=== PATIENT | female | born 1970 | race Native Hawaiian/Other Pacific Islander ===

== ENCOUNTER 2017-01-03 11:08 | Emergency (ER) | payer SELFPAY ==
[2017-01-03] MEDS ORDERED: FUROSEMIDE 40 MG/4 ML VIAL IVP STA (11:40)
[2017-01-03] MEDS ORDERED: IPRATROPIUM/ALBUTEROL 3 ML NEB INH STA (11:40)
[2017-01-03] MEDS ORDERED: IPRATROPIUM/ALBUTEROL 3 ML NEB INH ONE (11:59)
--- NOTE | 2017-01-03 12:01 | XRAY Preliminary Report ---
Exam: XR Chest 1 View IMPRESSION: 1. Some vascular redistribution is present. No alveolar edema. [facility] SITE ID: [id number]
[2017-01-03 12:10] LABS: BASOPHILS # (AUTO) 0.1 10^3/uL (0.0-0.1); BASOPHILS % (AUTO) 0.7 %; EOSINOPHILS # (AUTO) 0.3 10^3/uL (0.0-0.7); HCT - HEMATOCRIT 50.8 % (37.0-47.0); HGB - HEMOGLOBIN 16.5 g/dL (12.0-16.0); LYMPHOCYTES # (AUTO) 2.7 10^3/uL (1.5-3.5); LYMPHOCYTES % (AUTO) 27.9 %; MEAN CORPUSCULAR HGB CONC 32.5 g/dL (32.0-36.0); MEAN CORPUSCULAR VOLUME 92.2 fL (81.0-99.0); MEAN PLATELET VOLUME 7.5 fL (7.9-10.8); MONOCYTES # (AUTO) 0.5 10^3/uL (0.0-1.0); MONOCYTES % (AUTO) 5.1 %; NEUTROPHILS # (AUTO) 6.1 10^3/uL (1.5-6.6); NEUTROPHILS % (AUTO) 63.3 %; RED BLOOD COUNT 5.51 10^6/uL (4.20-5.40); RED CELL DISTRIBUTION WIDTH 16.6 % (12.0-15.0); UNCORRECTED WHITE BLOOD COUNT 9.6 x10^3/uL; WHITE BLOOD COUNT 9.6 x10^3/uL (4.8-10.8)
--- NOTE | 2017-01-03 12:17 | ED Physician Documentation ---
PD HPI DYSPNEA - Stated complaint Stated Complaint: SOA - Chief complaint Chief Complaint: Resp - History obtained from History obtained from: Patient, Family - History of Present Illness Timing - onset: How many days ago (About 10.) Timing - details: Waxing and waning Worsened by: Exertion Associated symptoms: Cough, Bilateral edema. No: Fever, Chest pain / discomfort Similar symptoms before: Diagnosis (Has history of congestive heart failure, and has not been taking her diuretic medication for 2 weeks.) - Additional information Additional information: The patient is a 46-year-old female who is visiting from [place], and who presents with "labored breathing." She has had dyspnea with exertion for about 10 days, and it has been getting worse. Her dyspnea is also worse with supine position. When she left [place] 2 weeks ago she forgot her Lasix, and has not taken any diuretics for the past 2 weeks. She reports cough that is productive of a yellowish colored sputum. She denies fever or chest pain. She reports nausea, without vomiting. Social history is significant for cigarette smoking. Review of Systems Constitutional: denies: Fever Nose: denies: Congestion Throat: denies: Sore throat Cardiac: denies: Chest pain / pressure Respiratory: reports: Dyspnea, Cough GI: reports: Nausea. denies: Abdominal Pain, Vomiting : denies: Dysuria Skin: denies: Rash Musculoskeletal: reports: Extremity swelling. denies: Back pain Neurologic: denies: Focal weakness, Numbness, Headache PD PAST MEDICAL HISTORY - Past Medical History Past Medical History: Yes Cardiovascular: Congestive heart failure, Hypertension - Past Surgical History Past Surgical History: Yes General: Cholecystectomy - Present Medications Home Medications: Ambulatory Orders Medication Instructions Recorded Confirmed Furosemide [Lasix] 40 mg PO DAILY #30 tablet 01/03/17 Potassium Chloride [K-Dur] 20 meq PO BIDWM #60 tablet 01/03/17 - Allergies Allergies/Adverse Reactions: Allergies Allergy/AdvReac Type Severity Reaction Status Date / Time No Known Drug Allergies Allergy Verified 01/03/17 11:27 - Social History Does the pt smoke?: Yes Smoking Status: Current every day smoker Does the pt drink ETOH?: No Does the pt have substance abuse?: No Additional Social History: Visiting from [place]. - Immunizations Immunizations are current?: Yes PD ED PE NORMAL - Vitals Vital signs reviewed: Yes (hypertensive) - General General: Alert and oriented X 3, Other (Morbidly obese.) - HEENT HEENT: Atraumatic, EOMI, Pharynx benign - Neck Neck: No adenopathy, No JVD (No JVD at 30 elevation.) - Cardiac Cardiac: RRR, No murmur - Respiratory Respiratory: Other (Diffuse expiratory wheezes, and rales at the bases bilaterally.) - Abdomen Abdomen: Soft, Non tender - Back Back: No CVA TTP - Derm Derm: No rash - Extremities Extremities: No calf tenderness / cord, Other (1-2+ pedal edema bilaterally. No calf tenderness.) - Neuro Neuro: Alert and oriented X 3, No motor deficit, No sensory deficit Results - Vitals Vitals: Oxygen O2 Source Room air - EKG (time done) 12:09 Rate: Rate (enter#) (95) Rhythm: NSR, LAE Intervals: RBBB (incomplete) QRS: Normal Ischemia: Non specific changes Computer interpretation: Agree with computer - Labs Labs: Laboratory Tests 01/03/17 01/03/17 01/03/17 12:00 12:00 12:00 WBC 9.6 RBC 5.51 H Hgb 16.5 H Hct 50.8 H MCV 92.2 MCH 30.0 MCHC 32.5 RDW 16.6 H Plt Count 231 MPV 7.5 L Neut # 6.1 Lymph # 2.7 Guthrie # 0.5 Eos # 0.3 Baso # 0.1 Absolute Nucleated RBC 0.00 Nucleated RBCs 0.0 Sodium 140 Potassium 3.5 Chloride 106 Carbon Dioxide 27 Anion Gap 7.0 BUN 17 Creatinine 1.2 H Estimated GFR (MDRD) 48 L Glucose 117 H Calcium 8.7 Total Bilirubin 1.0 AST 27 ALT 24 Alkaline Phosphatase 57 Troponin I 0.14 B-Natriuretic Peptide Total Protein 7.5 Albumin 3.9 Globulin 3.6 Albumin/Globulin Ratio 1.1 Lipase 29 01/03/17 12:00 WBC RBC Hgb Hct MCV MCH MCHC RDW Plt Count MPV Neut # Lymph # Guthrie # Eos # Baso # Absolute Nucleated RBC Nucleated RBCs Sodium Potassium Chloride Carbon Dioxide Anion Gap BUN Creatinine Estimated GFR (MDRD) Glucose Calcium Total Bilirubin AST ALT Alkaline Phosphatase Troponin I B-Natriuretic Peptide 415 H Total Protein Albumin Globulin Albumin/Globulin Ratio Lipase - Rads (name of study) 1-view CXR Radiology: Prelim report reviewed, EMP read contemporaneously, See rad report ( Some vascular redistribution is present. No alveolar edema.) PD MEDICAL DECISION MAKING - ED course Complexity details: reviewed results, re-evaluated patient, considered differential, d/w patient, d/w family ED course: The patient's presentation is significant for acute on chronic congestive heart failure, in a patient who has not been taking her diuretic medication for 2 weeks. Her clinical presentation does not suggest pneumonia, and I doubt pulmonary embolus or myocardial ischemia. Treatment in the emergency department included administration of Lasix 40 mg IV , and DuoNeb nebulizer. She subsequently urinated over 1000 mL, and felt subjectively much improved. Repeat examination reveals improved air movement, with no wheezing, and barely discernible rales at the bases. She is being discharged with prescriptions for Lasix and supplemental potassium. I discussed with her and her family ongoing treatment, as well as potentially worrisome signs or symptoms that should prompt reevaluation in the emergency department. Departure - Departure Disposition: 01 Home, Self Care Clinical Impression: Congestive heart failure Qualifiers: Congestive heart failure type: unspecified congestive heart failure type Congestive heart failure chronicity: acute on chronic Qualified Code(s): I50.9 - Heart failure, unspecified Hypertension Qualifiers: Hypertension type: unspecified secondary hypertension Qualified Code(s): I15.9 - Secondary hypertension, unspecified; I15 - Secondary hypertension Condition: Stable Instructions: ED CHF General Prescriptions: Potassium Chloride [K-Dur] 20 meq PO BIDWM #60 tablet Furosemide [Lasix] 40 mg PO DAILY #30 tablet Comments: 1. Resume taking Lasix as prescribed. 2. Also take potassium as prescribed. 3. Avoid eating salty food. 4. Follow-up with your primary physician upon return to [place]. 5. Return to the emergency department if you develop increasing difficulty breathing, or otherwise worsening symptoms. Discharge Date/Time: 01/03/17 15:26
[2017-01-03 12:19] LABS: ALBUMIN/GLOBULIN RATIO 1.1 (1.0-2.2); CALCIUM 8.7 mg/dL (8.5-10.3); CREATININE 1.2 mg/dL (0.4-1.0); POTASSIUM 3.5 mmol/L (3.5-5.0); TOTAL PROTEIN 7.5 g/dL (6.7-8.2)
--- NOTE | 2017-01-03 12:37 | XRAY Report ---
EXAM: CHEST RADIOGRAPHY EXAM DATE: 01/03/2017 11:54 AM. CLINICAL HISTORY: Dyspnea. COMPARISON: None. TECHNIQUE: 1 view. FINDINGS: Lungs/Pleura: There is a background of increased density in both lungs with indistinct vessel margins . Mediastinum: Within exam limitations, cardiomediastinal contour is normal. Other: None. IMPRESSION: 1. Some vascular redistribution is present. No alveolar edema. [facility] Referring Provider Line: [phone] SITE ID: [id number]
[2017-01-03] MEDS ORDERED: FUROSEMIDE 40 MG/4 ML VIAL ONE (12:57)
[2017-01-03 15:28] VITALS: BP 184/125
== END 2017-01-03 15:26 | disposition home or self-care (01) ==
LOC: ED 11:08
DX: I50.9 Heart failure, unspecified (principal); I15.9 Secondary hypertension, unspecified; F17.210 Nicotine dependence, cigarettes, uncomplicated
CPT/HCPCS: 36415; 71010; 80053; 83690; 83880; 84484; 85025; 93005; 96374; 99284; J7620